=== PATIENT | female | born 1965 | race Caucasian/White ===

== ENCOUNTER 2018-10-14 10:40 | Outpatient (CLI) | payer OTHER ==
--- NOTE | 2018-10-14 13:08 | Diagnostic Imaging Report ---
REANNA PEDROZA [facility] [address] [facility] [address] [id number] Report Submission Date: Oct 14, 2018 11:21:57 AM [employer] Patient Study Name: ALFONZO VICENTE Date: Oct 15, 2018 1:47:02 AM [employer] Modality Type: DX Gender: F Description: CHEST 2 VIEW : 67 Institution: [facility] Physician: REANNA PEDROZA PA AND LATERAL CHEST HISTORY: Positive PPD COMPARISON: None PA and Lateral Chest dated October 14, 2018 demonstrates a normal cardiomediastinal silhouette. Pulmonary vascularity is normal. Lungs are clear. IMPRESSION: NO ACTIVE DISEASE. Electronically signed on Oct 14, 2018 11:21:57 AM [employer] by: Katherine GONZALEZ
== END 2018-10-14 10:43 ==
LOC: RAD 10:40
PROVIDERS: ATTEND Family Medicine
DX: R76.11 Nonspecific reaction to tuberculin skin test without active tuberculosis (principal)
CPT/HCPCS: 71046